=== PATIENT | male | born 1950 | race Caucasian/White ===

== ENCOUNTER 2022-03-06 08:59 | Outpatient (CLI) | payer OTHER, SELFPAY ==
--- NOTE | 2022-03-06 09:15 | CRLHL7_ITS ---
For Patients: As a result of the Century Cures Act, medical imaging exams and procedure reports are released immediately into your electronic medical record. You may view this report before your referring provider. If you have questions, please contact your health care provider. INDICATION: Rectal carcinoma. Staging. TECHNIQUE: Multiplanar imaging of the pelvis was performed without and with cc of Gadavist contrast material IV. COMPARISON: None FINDINGS: A carcinoma involving the middle and upper 1/3 of the rectum is demonstrated. This lesion measures roughly 7.5 cm in length and does involve the mesorectum. Small spicules of involvement of just beyond the muscularis propria are demonstrated at multiple sites. The most significant involvement appears to be present along the right side of the rectum on images 19 and 20 of series 3. At this site along the middle 1/3 of the rectum, the tumor appears to extend up to 12 mm into the mesorectum. The mesorectal fascia is not obviously involved. Contiguous with this site of invasion is a 1.9 x 1.3 x 1.1 cm lymph node is seen on image 21. an irregularly marginated 1.3 x 1.0 x 0.8 cm superior left perirectal lymph node is demonstrated on image 13. No other adenopathy is apparent. No free fluid or peritoneal implant is evident. The other visualized bowel is unremarkable. The prostate is mild to moderately enlarged. IMPRESSION: 1. 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 2. Mild to moderate prostate enlargement. Dictated by Navin Headley MD @ 03/11/2022 4:49:48 AM (Electronically Signed)
== END 2022-03-06 09:00 | disposition home or self-care (01) ==
LOC: MRI 09:04
PROVIDERS: PCP Internal Medicine Hematology & Oncology; Visit Provider Internal Medicine Hematology & Oncology
DX: C20 Malignant neoplasm of rectum (principal)
CPT/HCPCS: 72197; A9575